=== PATIENT | female | born 1950 | race Caucasian/White ===

== ENCOUNTER → 2019-04-27 | Outpatient (CLI) | payer MEDICARE, OTHER ==
[~2019-04-27] MED LIST: ACET325T14 PO; ASPI-496 PO; BACL-19 PO; BUSP30TA PO; CALC-316 PO; CLOT15CR6 TP; CYCL-259 PO; DEXL60CA2 PO; GABA300C10 PO; LIFI1DRO EACHEYE; LOSA1TAB22 PO; MELO15TA24 PO; METF750T42 PO; NYST15CR33 TP; PRAV40TA2 PO; SERT100T32 PO; SIME125C67 PO; THIA250T7 PO
[2019-04-27 15:33] LABS: MICROSCOPIC NOT IND
[2019-04-27 15:35] LABS: BASOPHILS # (AUTO) 0.02 x10^3/uL (0-0.1); BASOPHILS % (AUTO) 0 % (0-1); EOSINOPHILS % (AUTO) 2 % (1-7); LYMPHOCYTES # (AUTO) 1.32 x10^3/uL (1-3.4); LYMPHOCYTES % (AUTO) 21 % (22-44); MD NO; MEAN CORPUSCULAR HEMOGLOBIN 28.5 pg (27.0-34.8); MEAN CORPUSCULAR VOLUME 86.5 fL (80-100); MONOCYTES # (AUTO) 0.41 x10^3/uL (0.2-0.8); MONOCYTES % (AUTO) 7 % (2-9); NEUTROPHILS # (AUTO) 4.35 x10^3/uL (1.8-6.8); NEUTROPHILS % (AUTO) 70 % (42-75); PLATELET COUNT 261 x10^3/uL (130-400); RED BLOOD COUNT 5.41 x10^6/uL (3.82-5.3); RED CELL DISTRIBUTION WIDTH 13.6 % (9.6-15.2)
[2019-04-27 15:38] LABS: INTERNATIONAL NORMALIZED RATIO 0.9 (0.93-1.1); PROTHROMBIN TIME 9.5 Seconds (9.6-11.5)
[2019-04-27 15:39] LABS: CULTURE INDICATED? NO
[2019-04-27 15:40] LABS: ALANINE AMINOTRANSFERASE 23 U/L (12-78); ALBUMIN 3.6 g/dL (3.4-5.0); ANION GAP 6 mmol/L (5-15); CALCIUM 8.9 mg/dL (8.5-10.1); CHLORIDE 105 mmol/L (98-107); CREATININE 0.88 mg/dL (0.55-1.02)
[2019-04-27 15:42] LABS: ALKALINE PHOSPHATASE 116 U/L (45-117); BILIRUBIN,TOTAL 0.4 mg/dL (0.2-1.0); TOTAL PROTEIN 7.6 g/dL (6.4-8.2)
== END | disposition home or self-care (01) ==
LOC: STAR 14:04
PROVIDERS: ATTEND Neurological Surgery
DX: Z01.811 Encounter for preprocedural respiratory examination (principal); Z01.812 Encounter for preprocedural laboratory examination; M48.061 Spinal stenosis, lumbar region without neurogenic claudication; M54.17 Radiculopathy, lumbosacral region; M43.16 Spondylolisthesis, lumbar region; R79.1 Abnormal coagulation profile; R82.90 Unspecified abnormal findings in urine; R94.31 Abnormal electrocardiogram [ECG] [EKG]
CPT/HCPCS: 36415; 71046; 80053; 81003; 85025; 85610; 85730; 93005

== ENCOUNTER → 2019-04-27 | Outpatient (CLI) | payer MEDICARE, OTHER | END | disposition home or self-care (01) | LOC: CFH 12:44 | PROVIDERS: ATTEND Neurological Surgery | DX: M47.817 Spondylosis without myelopathy or radiculopathy, lumbosacral region (principal); M41.86 Other forms of scoliosis, lumbar region; M51.36 Other intervertebral disc degeneration, lumbar region; M48.061 Spinal stenosis, lumbar region without neurogenic claudication; M25.78 Osteophyte, vertebrae | CPT/HCPCS: 72131 ==

== ENCOUNTER 2019-05-08 07:00 | Inpatient (IN) | payer MEDICARE, OTHER ==
[~2019-05-08] VITALS: Ht 165.1 cm; Wt 92.3 kg
[~2019-05-08 07:00] MED LIST changes: +BACITRACIN 50,000 UNIT ONE; +BUPIVACAINE/PF 0.5% ONE; +EPINEPHRINE 1 MG/ML, 1ML ONE; +VANCOMYCIN 1,000 MG ONE
[2019-05-08] MEDS ORDERED: LACTATED RINGERS 1,000 ML IV SCH (07:53)
[2019-05-08] MEDS ORDERED: MIDAZOLAM 1 MG/ML, 2ML ONE (09:01)
[2019-05-08] MEDS ORDERED: FENTANYL PF 250 MCG/5ML ONE (09:01)
[2019-05-08] MEDS ORDERED: PROMETHAZINE 25 MG SUPP PR PRN (09:30)
[2019-05-08] MEDS ORDERED: ONDANSETRON ODT 8 MG PO PRN (09:30)
[2019-05-08] MEDS ORDERED: DIAZEPAM 5 MG/ML, 2ML IVPush PRN (09:30)
[2019-05-08] MEDS ORDERED: PROMETHAZINE 25 MG/ML, 1ML IV PRN (09:30)
[2019-05-08] MEDS ORDERED: hydrALAzine 20 MG/ML, 1ML IV PRN (09:30)
[2019-05-08] MEDS ORDERED: HYDROmorphone 2 MG/ML, 1ML IVPush PRN ×2 (09:30→14:30)
[2019-05-08] MEDS ORDERED: ONDANSETRON 2MG/ML, 2ML IV PRN ×2 (09:30→15:00)
[2019-05-08] MEDS ORDERED: FENTANYL PF 100 MCG/2ML IV PRN (09:30)
[2019-05-08] MEDS ORDERED: LABETALOL 5MG/ML, 20ML IV PRN (09:30)
[2019-05-08] MEDS ORDERED: ACETAMINOPHEN 325 MG TABLET PO PRN (09:30)
[2019-05-08] MEDS ORDERED: LORazepam 2 MG/ML, 1ML IVPush PRN (09:30)
[2019-05-08] MEDS ORDERED: OXYcodone 5 MG/5 ML ORAL.SOL UDC PO PRN (09:30)
[2019-05-08] MEDS ORDERED: GLYCOPYRROLATE 0.2MG/1ML, 5ML ONE (10:14)
[2019-05-08] MEDS ORDERED: DEXAMETHASONE 4 MG/ML, 1ML ONE (10:14)
[2019-05-08] MEDS ORDERED: ROCURONIUM 10MG/ML,5ML ONE (10:14)
[2019-05-08] MEDS ORDERED: PROPOFOL 10 MG/ML, 20ML ONE (10:14)
[2019-05-08] MEDS ORDERED: ONDANSETRON 2MG/ML, 2ML ONE (10:14)
[2019-05-08] MEDS ORDERED: CEFAZOLIN 1,000 MG ONE (10:14)
[2019-05-08] MEDS ORDERED: SUCCINYLCHOLINE 20 MG/ML, 10ML ONE (10:14)
[2019-05-08] MEDS ORDERED: NEOSTIGMINE 1 MG/ML, 10ML ONE (10:14)
[2019-05-08] MEDS ORDERED: FENTANYL PF 100 MCG/2ML ONE ×2 (10:43→13:02)
[2019-05-08] MEDS ORDERED: LABETALOL 5MG/ML, 20ML ONE ×2 (11:18→13:06)
[2019-05-08] MEDS ORDERED: RANITIDINE 50 MG in SODIUM CHLORIDE 0.9% 100 ML IV PRN (12:30)
[2019-05-08] MEDS ORDERED: METHOCARBAMOL 1,000 MG in DEXTROSE 5% 100 ML IV ONE (13:00)
[2019-05-08 13:55] VITALS: BP 145/81
[2019-05-08] MEDS ORDERED: DIPHENHYDRAMINE 50 MG/ML, 1ML IVPush PRN (15:00)
[2019-05-08] MEDS ORDERED: PROMETHAZINE 25 MG/ML, 1ML IM PRN (15:00)
[2019-05-08] MEDS ORDERED: BISACODYL 10 MG SUPP PR PRN (15:00)
[2019-05-08] MEDS ORDERED: LORazepam 1MG TABLET PO PRN (15:00)
[2019-05-08] MEDS ORDERED: MAGNESIUM HYDROXIDE 8%, 30ML UDC PO PRN (15:00)
[2019-05-08] MEDS ORDERED: HYDROcodone/APAP 10/325 MG TABLET PO PRN (15:00)
[2019-05-08] MEDS: HYDROcodone/APAP 5/325 TABLET PO PRN ×2 (15:29→23:01)
[2019-05-08] MEDS: INSULIN REGULAR 100 UNITS/ML, 3ML VIAL SQ-INSULIN SCH ×2 (16:51→20:30)
[2019-05-08] MEDS: NS + 20MEQ KCL 1,000 ML IV SCH ×2 (16:51→20:43)
[2019-05-08] MEDS: metFORMIN XR 500 MG TAB.ER.24H PO SCH (17:38)
[2019-05-08] MEDS: CEFAZOLIN PMX 1GM/50ML 50 ML IVPB SCH (17:38)
[2019-05-08] MEDS: CALCIUM/VITAMIN D3 250-125 TABLET PO SCH ×2 (17:38→20:36)
[2019-05-08] MEDS: BUSPIRONE 10 MG TABLET PO SCH (20:35)
[2019-05-08] MEDS: SIMETHICONE 125 MG CHEW TAB PO SCH (20:35)
[2019-05-08] MEDS: GABAPENTIN 300 MG CAPSULE PO SCH (20:36)
[2019-05-08] MEDS: CLOTRIM/BETAMETH 1%/0.05% CRM TP SCH (20:36)
[2019-05-08] MEDS ORDERED: ZOLPIDEM 5MG TABLET PO PRN (21:00)
[2019-05-08 21:08] VITALS: BP 121/71
[2019-05-09 00:10] VITALS: BP 105/78
[2019-05-09] MEDS: CEFAZOLIN PMX 1GM/50ML 50 ML IVPB SCH (01:46)
[2019-05-09 04:17] VITALS: BP 134/65
[2019-05-09] MEDS: ENOXAPARIN 40 MG/0.4 ML SQ SCH (06:15)
[2019-05-09] MEDS: INSULIN REGULAR 100 UNITS/ML, 3ML VIAL SQ-INSULIN SCH ×4 (06:15→20:34)
[2019-05-09] MEDS: PANTOPROZOLE 40MG TABLET PO SCH (06:15)
[2019-05-09 08:00] VITALS: BP 118/70
[2019-05-09] MEDS: SIMETHICONE 125 MG CHEW TAB PO SCH ×2 (08:06→20:31)
[2019-05-09] MEDS: HYDROcodone/APAP 5/325 TABLET PO PRN ×3 (08:06→20:00)
[2019-05-09] MEDS: LOSARTAN 100 MG TAB PO SCH (08:07)
[2019-05-09] MEDS: PRAVASTATIN 40 MG TABLET PO SCH (08:07)
[2019-05-09] MEDS: CALCIUM/VITAMIN D3 250-125 TABLET PO SCH ×3 (08:07→20:31)
[2019-05-09] MEDS: BUSPIRONE 10 MG TABLET PO SCH ×2 (08:07→20:31)
[2019-05-09] MEDS: HYDROCHLOROTHIAZIDE 25 MG TABLET PO SCH (08:07)
[2019-05-09] MEDS: SENNA/DOCUSATE TABLET PO SCH (08:07)
[2019-05-09] MEDS: THIAMINE 100MG TABLET PO SCH (08:08)
[2019-05-09] MEDS: SERTRALINE 100MG TABLET PO SCH (08:08)
[2019-05-09] MEDS: GABAPENTIN 300 MG CAPSULE PO SCH ×2 (08:08→20:31)
[2019-05-09] MEDS: CLOTRIM/BETAMETH 1%/0.05% CRM TP SCH ×2 (08:08→20:27)
[2019-05-09] MEDS ORDERED: METFORMIN 750 MG HOMEMEDPO SCH (09:00)
[2019-05-09] MEDS: NS + 20MEQ KCL 1,000 ML IV SCH ×2 (10:37→20:26)
[2019-05-09] MEDS: BACLOFEN 10 MG TABLET PO PRN (12:46)
[2019-05-09 13:12] VITALS: BP 108/62
[2019-05-09] MEDS: metFORMIN XR 500 MG TAB.ER.24H PO SCH (16:41)
[2019-05-09 19:25] VITALS: BP 102/63
[2019-05-10] MEDS: HYDROcodone/APAP 5/325 TABLET PO PRN ×5 (00:29→22:51)
[2019-05-10 01:04] VITALS: BP 101/58
[2019-05-10] MEDS: NS + 20MEQ KCL 1,000 ML IV SCH ×2 (01:30→16:10)
[2019-05-10] MEDS: PANTOPROZOLE 40MG TABLET PO SCH (06:11)
[2019-05-10] MEDS: ENOXAPARIN 40 MG/0.4 ML SQ SCH (06:12)
[2019-05-10] MEDS: INSULIN REGULAR 100 UNITS/ML, 3ML VIAL SQ-INSULIN SCH ×4 (06:22→21:00)
[2019-05-10 06:29] VITALS: BP 136/77
[2019-05-10] MEDS: CLOTRIM/BETAMETH 1%/0.05% CRM TP SCH ×2 (07:26→21:00)
[2019-05-10] MEDS: SENNA/DOCUSATE TABLET PO SCH (07:33)
[2019-05-10] MEDS: LOSARTAN 100 MG TAB PO SCH (07:33)
[2019-05-10] MEDS: BUSPIRONE 10 MG TABLET PO SCH ×2 (07:33→21:28)
[2019-05-10] MEDS: GABAPENTIN 300 MG CAPSULE PO SCH ×2 (07:33→21:29)
[2019-05-10] MEDS: CALCIUM/VITAMIN D3 250-125 TABLET PO SCH ×3 (07:34→21:29)
[2019-05-10] MEDS: SERTRALINE 100MG TABLET PO SCH (07:34)
[2019-05-10] MEDS: HYDROCHLOROTHIAZIDE 25 MG TABLET PO SCH (07:34)
[2019-05-10] MEDS: THIAMINE 100MG TABLET PO SCH (07:34)
[2019-05-10] MEDS: SIMETHICONE 125 MG CHEW TAB PO SCH ×2 (07:34→21:28)
[2019-05-10] MEDS: PRAVASTATIN 40 MG TABLET PO SCH ×2 (07:34→21:29)
[2019-05-10 12:53] VITALS: BP 149/73
[2019-05-10] MEDS: BACLOFEN 10 MG TABLET PO PRN (13:37)
[2019-05-10] MEDS: metFORMIN XR 500 MG TAB.ER.24H PO SCH (16:14)
[2019-05-10 20:49] VITALS: BP 113/67
[2019-05-11 02:08] VITALS: BP 119/71
[2019-05-11] MEDS: HYDROcodone/APAP 5/325 TABLET PO PRN ×3 (02:44→11:08)
[2019-05-11] MEDS: NS + 20MEQ KCL 1,000 ML IV SCH (03:00)
[2019-05-11 06:23] LABS: CREATININE 0.73 mg/dL (0.55-1.02)
[2019-05-11] MEDS: ENOXAPARIN 40 MG/0.4 ML SQ SCH (06:39)
[2019-05-11] MEDS: PANTOPROZOLE 40MG TABLET PO SCH (06:39)
[2019-05-11] MEDS: INSULIN REGULAR 100 UNITS/ML, 3ML VIAL SQ-INSULIN SCH (07:26)
[2019-05-11 07:33] VITALS: BP 100/55
[2019-05-11] MEDS: BUSPIRONE 10 MG TABLET PO SCH (08:00)
[2019-05-11] MEDS: SERTRALINE 100MG TABLET PO SCH (08:00)
[2019-05-11] MEDS: THIAMINE 100MG TABLET PO SCH (08:00)
[2019-05-11] MEDS: SENNA/DOCUSATE TABLET PO SCH (08:01)
[2019-05-11] MEDS: LOSARTAN 100 MG TAB PO SCH (08:01)
[2019-05-11] MEDS: GABAPENTIN 300 MG CAPSULE PO SCH (08:01)
[2019-05-11] MEDS: HYDROCHLOROTHIAZIDE 25 MG TABLET PO SCH (08:02)
[2019-05-11] MEDS: SIMETHICONE 125 MG CHEW TAB PO SCH (08:02)
[2019-05-11] MEDS: CALCIUM/VITAMIN D3 250-125 TABLET PO SCH (08:02)
[2019-05-11 08:05] VITALS: BP 111/71
[2019-05-11] MEDS: CLOTRIM/BETAMETH 1%/0.05% CRM TP SCH (08:05)
[2019-05-11] MEDS ORDERED: HYDR-36 PO (08:22)
== END 2019-05-11 12:08 | disposition home or self-care (01) | DRG 455 ==
LOC: ORIP 07:36 → 4NE 13:40 → DCLOUNGE 05-11 11:54
PROVIDERS: ADMIT Neurological Surgery; ATTEND Neurological Surgery
PROC: 0SG0071 Fusion of Lumbar Vertebral Joint with Autologous Tissue Substitute, Posterior Approach, Posterior Column, Open Approach (ICD-10-PCS; 2019-05-08)
PROC: 0SB20ZZ Excision of Lumbar Vertebral Disc, Open Approach (ICD-10-PCS; 2019-05-08)
PROC: 01NB0ZZ Release Lumbar Nerve, Open Approach (ICD-10-PCS; 2019-05-08)
PROC: 0SG00AJ Fusion of Lumbar Vertebral Joint with Interbody Fusion Device, Posterior Approach, Anterior Column, Open Approach (ICD-10-PCS; principal; 2019-05-08 09:30)
DX: M48.061 Spinal stenosis, lumbar region without neurogenic claudication (principal); M51.16 Intervertebral disc disorders with radiculopathy, lumbar region; M43.16 Spondylolisthesis, lumbar region; E11.9 Type 2 diabetes mellitus without complications; L90.5 Scar conditions and fibrosis of skin; M47.816 Spondylosis without myelopathy or radiculopathy, lumbar region; M47.26 Other spondylosis with radiculopathy, lumbar region; M53.2X6 Spinal instabilities, lumbar region; M46.1 Sacroiliitis, not elsewhere classified
CPT/HCPCS: 36415; 72100; 82565; 82962; C1713; C1776; G0378; J0171; J0690; J1100; J1650; J2250; J2405; J2704; J2710; J3010; J3370; J3480; C1763; J0330; J2800; J7120